=== PATIENT | female | born 1960 | race Caucasian/White ===

== ENCOUNTER 2020-09-17 14:42 | Outpatient (CLI) | payer BC, OTHER ==
--- NOTE | 2020-09-17 17:29 | XRAY Report ---
PROCEDURE: Hip w/Pelvis 1V LT INDICATIONS: LEFT HIP PAIN TECHNIQUE: AP pelvis with lateral view(s) of the left hip(s). COMPARISON: Correlation is made with the accompanying lumbar plain films, 09/17/2020 FINDINGS: Bones: No fractures or dislocations. Pelvic ring appears intact. No suspicious bony lesions. There is moderate superior joint space narrowing seen involving both hips. There is associated remode ling change, with subchondral sclerosis and osteophyte formation. Note is made of age-appropriate degenerative change of the lower lumbar spine. Soft tissues: The visualized bowel gas pattern is normal. No suspicious soft tissue calcifications. IMPRESSION: Moderate hip degenerative change is seen by plain film. If it would be helpful for clinical management decision making, please consider a dedicated hip MRI f or further evaluation (assuming that there is no contraindication). This should be performed accordi ng to the arthrogram protocol, if there is strong clinical concern for a labral abnormality. Reviewed by: Raf Cárdenas MD on 09/17/2020 4:28 PM AKST Approved by: Raf Cárdenas MD on 09/17/2020 4:28 PM [place] Station ID: [id number]
--- NOTE | 2020-09-17 17:32 | XRAY Report ---
PROCEDURE: Lumbar Spine 2 View INDICATIONS: LUMBAR BACK PAIN TECHNIQUE: 3 views of the lumbar spine were acquired. COMPARISON: Correlation is made with the accompanying hip plain films, 09/16/2020 FINDINGS: Bones: Transitional lumbar anatomy is seen. For the purposes of this examination, the level with the last well-developed pair of ribs is considered to be T12. By this imaging scheme, the S1 level is tr ansitional and is partially lumbarized on both sides. There is mild disc space narrowing seen at L1-L2 and L2-L3, with moderate disc space narrowing at L4- L5 and moderate to severe disc space narrowing at L5-S1. Vacuum disc phenomenon is seen at L5-S1. At S1-S2, there is a transitional, rudimentary disc seen. Endplate irregularity and sclerosis are seen, which are worst at L1-L2 and at L5-S1. Facet Minimal dextroconvex lumbar sclerotic curvature is seen. No significant AP alignment abnormality can be seen. No vertebral body compression fractures. No suspicious bony lesions. Soft tissues: Overlying bowel gas pattern is normal. No suspicious soft tissue calcifications. Ath erosclerotic calcification is seen. IMPRESSION: Lumbar spine degenerative changes are seen, which are most prominent inferiorly. Transitional lumbar anatomy is seen, with a partially lumbarized S1 level. Minimal dextroconvex lumbar spinal curvature. Reviewed by: Raf Cárdenas MD on 09/17/2020 4:31 PM [place] Approved by: Raf Cárdenas MD on 09/17/2020 4:31 PM [facility] Station ID: [id number]
== END 2020-09-17 23:59 | disposition home or self-care (01) ==
LOC: DI.S 14:42
PROVIDERS: ATTEND Physician Assistant Medical
DX: M25.552 Pain in left hip (principal); M16.12 Unilateral primary osteoarthritis, left hip; M54.5 Low back pain; M47.816 Spondylosis without myelopathy or radiculopathy, lumbar region; M48.061 Spinal stenosis, lumbar region without neurogenic claudication

== ENCOUNTER 2022-02-20 08:00 | Outpatient (CLI) | payer OTHER ==
--- NOTE | 2022-02-21 10:32 | XRAY Report ---
PROCEDURE: Wrist 3 View RT INDICATIONS: RIGHT WRIST PAIN AFTER FALL TECHNIQUE: 3 views of the wrist were acquired. COMPARISON: None FINDINGS: Bones: No fractures or dislocations. No suspicious bony lesions. Mild periarticular osteophyte for mation at the scaphotrapezial and first carpal-metacarpal joints. Scaphoid view: Not requested Soft tissues: No suspicious soft tissue calcifications. IMPRESSION: Osteoarthritis. No acute fracture. No osseous lesion. If symptoms and/or clinical suspicion for patho logy continue, further assessment with repeat plain films, or advanced imaging (e.g., CT, MRI, or bon e scan) is recommended for further assessment. Reviewed by: Johan Mabry MD on 02/21/2022 10:30 AM PDT Approved by: Johan Mabry MD on 02/21/2022 10:30 AM PDT Station ID: [id number]
--- NOTE | 2022-02-21 11:27 | XRAY Report ---
PROCEDURE: Elbow 3 View RT INDICATIONS: RIGHT ELBOW PAIN AFTER FALL TECHNIQUE: 3 views of the elbow were acquired. COMPARISON: X-ray right elbow, 12/13/2009. FINDINGS: Bones: No fractures or dislocations. No suspicious bony lesions. Moderate degenerative joint disea se. Soft tissues: No elbow joint effusion. No suspicious soft tissue calcifications. IMPRESSION: 1. No acute osseous amenities. If clinical symptoms persist or there is height clinical suspicion for internal derangement, MRI may be helpful. 2. Moderate degenerative joint disease. Reviewed by: Ck Umanzor MD on 02/21/2022 11:26 AM PDT Approved by: Ck Umanzor MD on 02/21/2022 11:26 AM PDT Station ID: [id number]
== END 2022-02-20 23:59 | disposition home or self-care (01) ==
LOC: DI.S 08:00
PROVIDERS: ATTEND Registered Nurse
DX: M19.021 Primary osteoarthritis, right elbow (principal); M19.031 Primary osteoarthritis, right wrist

== ENCOUNTER 2023-01-17 08:00 | Outpatient (CLI) | payer OTHER ==
--- NOTE | 2023-01-17 14:04 | XRAY Report ---
PROCEDURE: Finger(s) RT INDICATIONS: RIGHT INDEX FINGER INJURY TECHNIQUE: AP hand, 2 views of the second finger(s) acquired. COMPARISON: None. FINDINGS: Bones: No fractures or dislocations. Osteoarthritic changes are noted in second digit most notably involving second distal interphalangeal joints with joint space narrowing, subchondral sclerosis and marginal osteophyte formations. No suspicious bony lesions. Soft tissues: No suspicious soft tissue calcifications or masses. Radiodensity in soft tissue proj ecting over dorsal aspect of third middle phalanx is seen. IMPRESSION: No acute bony abnormality. Osteoarthritis throughout second digit as above. Possible foreign body in third digit as above. Reviewed by: Oscar Phipps MD on 01/17/2023 2:03 PM PDT Approved by: Oscar Phipps MD on 01/17/2023 2:03 PM PDT Station ID: [id number]
== END 2023-01-17 23:59 | disposition home or self-care (01) ==
LOC: DI.S 08:00
PROVIDERS: ATTEND Physician Assistant
DX: S67.190A Crushing injury of right index finger, initial encounter (principal); M19.041 Primary osteoarthritis, right hand

== ENCOUNTER 2023-12-11 10:31 | Outpatient (CLI) | payer MEDICAID, OTHER ==
--- NOTE | 2023-12-11 12:08 | XRAY Report ---
PROCEDURE: Knee 3V RT INDICATIONS: RIGHT KNEE SPRAIN TECHNIQUE: 3 views of the knee(s) were acquired. COMPARISON: None. FINDINGS: Bones: No fractures or dislocations. Tricompartment degenerative arthritis. Moderately severe 2 comp artment joint space loss. No suspicious bony lesions. Soft tissues: No knee joint effusion. No suspicious soft tissue calcifications or masses. IMPRESSION: No acute bony abnormality. Moderate to severe degenerative arthritis. Reviewed by: Toney Sky MD on 12/11/2023 12:06 PM PDT Approved by: Toney Sky MD on 12/11/2023 12:06 PM PDT Station ID: [id number]
== END 2023-12-11 23:59 | disposition home or self-care (01) ==
LOC: DI.S 10:31
PROVIDERS: ATTEND Emergency Medicine
DX: S83.411A Sprain of medial collateral ligament of right knee, initial encounter (principal); M17.11 Unilateral primary osteoarthritis, right knee